=== PATIENT | male | born 1990 | race Caucasian/White ===

== ENCOUNTER 2017-02-13 00:53 | Emergency (ER) | payer SELFPAY ==
--- NOTE | 2017-02-13 00:58 | PHYS DOC ---
General Stated Complaint: COUGHING UP BLOOD Time Seen by MD: 00:57 Source: patient, other Problems: History of Present Illness Initial Comments Patient with girlfriend for hemoptysis. Patient says he has had problems with URI symptoms, sinusitis, and cough off and on for the last 6 months. This been getting worse the last several weeks, and several times over this week she's noted some small amount of blood in his sputum. He has not seen a doctor for it previously, but tonight. Had an episode where he had about a half-dollar size piece of blood mixed in with some mucus which concerned him enough to come to the emergency department. He had some fever last week but not today. There is no chills. He has intermittent earaches from time to time but not today. He does have some nasal congestion but no real runny nose. He does have a cough which is occasionally productive of clear mucus. He has no real shortness of breath or chest pain with this. There is no sore throat other than from postnasal drip. There is no nausea vomiting or abdominal pain. He has no change amount of bladder habits and there is no focal extremity or neurologic complaints noted. Patient's really been nothing for this or his generalized symptoms at home, notes no fractures increase or decrease his symptoms. He has not yet seen a physician for this over the last several months. He's not had any significant travel and has not been around any high risk individuals or homeless. Patient's past medical history is otherwise unremarkable. He smokes a quarter pack of cigarettes daily. He states occasional social user of ethanol. Allergies: Coded Allergies: No Known Drug Allergies (Unverified , 07/24/16) Past Medical History Medical History: no pertinent history Surgical History: noncontributory Social History Smoker: less than 1 pack/day Alcohol: occasionally Review of Systems All Other Systems: Reviewed and Negative Physical Exam General Appearance: WD/WN, no apparent distress Ear, Nose, Throat: normal ENT inspection, normal pharynx Neck: full range of motion, supple, normal inspection Respiratory: lungs clear, normal breath sounds, no respiratory distress Cardiovascular: regular rate, rhythm, no edema, no gallop Gastrointestinal: non tender, soft, no organomegaly Back: no CVA tenderness, no vertebral tenderness Extremities: non-tender, normal inspection, no pedal edema Neurologic/Psychiatric: alert, normal mood/affect, oriented x 3 Skin: normal color Lymphatic: no adenopathy Comments Generally this is a well-developed well-nourished white male in no acute distress. Vitals are as noted. Pertinent findings on physical exam shows ears and throat are grossly clear. Neck is supple without adenopathy or JVD. There's no meningeal signs. Chest is clear to auscultation bilaterally. Cardiac exam shows regular rate and rhythm without murmur. The abdomen is soft and nontender. Back shows no CVA tenderness. Extremities show no rash cyanosis or edema. He is awake alert oriented and cooperative with exam. Remainder of physical exam is clinically unremarkable. Orders, Labs, Meds Old charts note a single prior ER visit for dental caries. Chest x-ray shows some increased markings suggestive of possible bronchitis but there is no other acute changes or consolidation per the emergency physician. There is no mass. 0130 Patient resting comfortably in the ER. I discussed with him most likely diagnosis of his hemoptysis probably related to some bronchitis. He does oxalic acid chronic sinusitis and bronchitis, they explained that while I consider to help him with his acute episode, I suspect this will probably come back and he' ll need primary care follow-up. I give him a list of primary care physicians in town. I also recommended the [facility] if he has no resources might be able to help. We'll go ahead and write him a prescription for amoxicillin as well as Tussionex today as an antibiotic and for symptomatically relief cough and congestion. He does voice understanding that this may well come back, given what sounds like a history of chronic sinusitis, and that he will need to follow up with primary care. He may also certainly return to the ER sooner as needed if worsening anyway. I provided reassurance the most common reason for hemoptysis in someone his age is a respiratory infection, and that there doesn' t appear to be in any evidence of cancer or other problem at this time. Has no high risk factors for TB. I did advise him against smoking. He voices understanding of the discharge instructions. He looks well, no acute discomfort or distress, okay for discharge home with his female friend. ANDER BIGGS MD Feb 13, 2017 00:58
[2017-02-13 01:05] VITALS: BP 146/95
--- NOTE | 2017-02-13 09:22 | RAD ---
Chest, 2 views, 02/13/2017: History: Coughing up blood The heart size is normal. The lungs are clear. There is no evidence of pleural fluid. IMPRESSION: No significant cardiopulmonary abnormality is detected.
== END 2017-02-13 01:40 | disposition home or self-care (01) ==
LOC: ER 00:59
DX: R04.2 Hemoptysis (principal); R09.81 Nasal congestion; R05 Cough; F17.210 Nicotine dependence, cigarettes, uncomplicated
CPT/HCPCS: 71020; 99284